=== PATIENT | female | born 1945 | race Hispanic/Latino ===

== ENCOUNTER → 2017-09-16 | Outpatient (CLI) | payer MEDICARE | END | disposition home or self-care (01) | LOC: RAH 11:39 | PROVIDERS: ATTEND Internal Medicine Hematology & Oncology | DX: I82.622 Acute embolism and thrombosis of deep veins of left upper extremity (principal) | CPT/HCPCS: 93971 ==

== ENCOUNTER → 2017-12-17 | Outpatient (CLI) | payer MEDICARE | END | disposition home or self-care (01) | LOC: RAH 17:28 | PROVIDERS: ATTEND Internal Medicine Hematology & Oncology | DX: I82.622 Acute embolism and thrombosis of deep veins of left upper extremity (principal) | CPT/HCPCS: 93971 ==